=== PATIENT | female | born 1995 | race Caucasian/White ===

== ENCOUNTER 2021-07-04 14:23 | Inpatient (IN) | payer SELFPAY ==
[~2021-07-04] VITALS: Ht 162.6 cm; Wt 47.7 kg
[2021-07-04 16:33] LABS: BASOPHILS % (AUTO) 0.6 % (0.0-2.0); EOSINOPHILS % (AUTO) 1.5 % (1.0-6.0); HEMATOCRIT 40.1 % (36-46); LYMPHOCYTES # (AUTO) 2.6 K/uL (1.0-4.8); LYMPHOCYTES % (AUTO) 30.6 % (22.0-44.0); MEAN CORPUSCULAR HGB CONC 32.6 G/dL (31.0-37.0); MEAN CORPUSCULAR VOLUME 98 fL (80-100); MONOCYTES # (AUTO) 0.4 K/uL (0.1-1.0); MONOCYTES % (AUTO) 4.5 % (2.0-9.0); NEUTROPHILS # (AUTO) 5.4 K/uL (1.8-7.7); NEUTROPHILS % (AUTO) 62.8 % (40.0-70.0); PLATELET COUNT (AUTO) 265 K/uL (150-450); RED BLOOD CELL COUNT(AUTO) 4.07 MIL/uL (4.00-5.20)
[2021-07-04 16:43] LABS: ANION GAP 5 mmol/L (8-16); CALCIUM, TOTAL 9.1 mg/dL (8.8-10.5); CARBON DIOXIDE 31 mmol/L (22-29); CHLORIDE 107 mmol/L (98-107); CREATININE 0.75 mg/dL (0.60-1.30); GLOMERULAR FILTR. RATE CALC > 60 mL/min (>60); GLUCOSE,RANDOM 130 mg/dL (70-110); POTASSIUM 4.1 mmol/L (3.5-5.1); SODIUM SERUM 143 mmol/L (136-145); UREA NITROGEN, BLOOD 12 mg/dL (7-18)
[2021-07-04 16:49] LABS: ALANINE AMINOTRANSFERASE 28 U/L (12-78); ALBUMIN 3.6 g/dL (3.4-5.0); ALKALINE PHOSPHATASE 118 U/L (46-116); ASPARTATE AMINOTRANSFERASE 32 U/L (15-37); BILIRUBIN,TOTAL 0.5 mg/dL (0.1-1.0); TOTAL PROTEIN, SERUM 6.9 g/dL (6.4-8.2)
[2021-07-04 17:32] LABS: AMPHET/METH SCREEN,URINE POSITIVE (NEGATIVE); BARBITURATE SCREEN, URINE NEGATIVE (NEGATIVE); BENZODIAZEPINES SCREEN,URINE NEGATIVE (NEGATIVE); CANNABINOID SCREEN,URINE POSITIVE (NEGATIVE); COCAINE SCREEN,URINE NEGATIVE (NEGATIVE); METHADONE SCREEN, URINE NEGATIVE (NEGATIVE); OPIATE SCREEN,URINE NEGATIVE (NEGATIVE)
[2021-07-04 17:35] LABS: PHENCYCLIDINE SCREEN,URINE NEGATIVE (NEGATIVE)
[2021-07-04] MEDS: LORazepam 1 MG TABLET PO ONE ×2 (19:04→19:09)
[2021-07-04] MEDS: HALOPERIDOL 5 MG TABLET PO ONE ×2 (19:04→19:09)
[2021-07-04] MEDS ORDERED: ZOLPIDEM TARTRATE 10 MG TABLET PO PRN (19:30)
[2021-07-04 21:33] LABS: COVID AG,FIA SOURCE NASOPHARYNGEAL
[2021-07-05] MEDS: LORazepam 2 MG TABLET PO PRN ×2 (01:13→09:14)
[2021-07-05 03:26] LABS: CHOL/HDL RATIO 1.8 (3.9-5.7); CHOLESTEROL 128 mg/dL (131-200); HDL CHOLESTEROL 70 mg/dL (40-60); LDL CHOL (CALC.) 45 mg/dL (0-130); TRIGLYCERIDES 66 mg/dL (15-150)
[2021-07-05] MEDS: HALOPERIDOL 5 MG TABLET PO PRN (09:14)
[2021-07-05] MEDS ORDERED: INFLUENZA VIRUS VACCINE QVS 2021-22 (6MO+)/PF 60 MCG/0.5 ML SYRINGE IM. ONE (18:30)
[2021-07-05] MEDS ORDERED: LOPERAMIDE HCL 2 MG CAPSULE PO PRN (20:45)
[2021-07-05] MEDS ORDERED: ALBUTEROL SULFATE HFA 90 MCG/PUFF 8 GM INHALER IH PRN (20:45)
[2021-07-05] MEDS ORDERED: ACETAMINOPHEN 325 MG TABLET PO PRN (20:45)
[2021-07-05] MEDS ORDERED: OMEPRAZOLE 20 MG CAPSULE PO PRN (20:45)
[2021-07-05] MEDS ORDERED: PETROLATUM,WHITE 28 GM JELLY TP PRN (20:45)
[2021-07-05] MEDS ORDERED: BACITRACIN 28 GM OINTMENT TP PRN (20:45)
[2021-07-05] MEDS ORDERED: MAG HYDROX/AL HYDROX/SIMETH ES 30 ML SUSPENSION UDCUP PO PRN (20:45)
[2021-07-05] MEDS ORDERED: DOCUSATE SODIUM 100 MG CAPSULE PO PRN (20:45)
[2021-07-05] MEDS ORDERED: BENZOCAINE/MENTHOL LOZENGE PO PRN (20:45)
[2021-07-05] MEDS ORDERED: IBUPROFEN 600 MG TABLET PO PRN (20:45)
[2021-07-05] MEDS ORDERED: MAGNESIUM HYDROXIDE SUSPENSION 30 ML UDCUP PO PRN (20:45)
[2021-07-05] MEDS ORDERED: ONDANSETRON HCL 4 MG TABLET PO PRN (20:45)
[2021-07-05] MEDS ORDERED: CloNIDine HCL 0.1 MG TABLET PO PRN (20:45)
[2021-07-05] MEDS ORDERED: NICOTINE 7 MG/24 HOUR PATCH TD PRN (21:00)
[2021-07-05 21:02] VITALS: BP 118/60
[2021-07-06 08:00] VITALS: BP_SYST 59
[2021-07-06] MEDS: HALOPERIDOL 5 MG TABLET PO PRN ×2 (08:44→16:34)
[2021-07-06 16:12] VITALS: BP 123/77
[2021-07-06] MEDS: LORazepam 2 MG TABLET PO PRN (16:34)
[2021-07-07 08:22] VITALS: BP 106/68
[2021-07-07] MEDS: LORazepam 2 MG TABLET PO PRN (11:06)
[2021-07-07] MEDS: HALOPERIDOL 5 MG TABLET PO PRN (11:06)
== END 2021-07-07 12:45 | disposition home or self-care (01) | DRG 885 ==
LOC: EMS 14:26 → 3EC 07-05 16:17
PROVIDERS: ADMIT Psychiatry & Neurology Psychiatry; ATTEND Psychiatry & Neurology Psychiatry
DX: F25.9 Schizoaffective disorder, unspecified (principal); R45.851 Suicidal ideations; F22 Delusional disorders; F12.10 Cannabis abuse, uncomplicated; F15.10 Other stimulant abuse, uncomplicated; F32.A Depression, unspecified; F41.9 Anxiety disorder, unspecified; G47.00 Insomnia, unspecified; F29 Unspecified psychosis not due to a substance or known physiological condition; F19.10 Other psychoactive substance abuse, uncomplicated; K59.00 Constipation, unspecified; Z20.822 Contact with and (suspected) exposure to COVID-19; F17.200 Nicotine dependence, unspecified, uncomplicated; Z71.6 Tobacco abuse counseling
CPT/HCPCS: 80053; 80061; 85025; 99285; G0480